=== PATIENT | male | born 1980 | race Caucasian/White ===

== ENCOUNTER 2017-05-11 18:41 | Emergency (ER) | payer SELFPAY ==
[~2017-05-11] VITALS: Ht 175.3 cm; Wt 83.9 kg
[~2017-05-11 18:41] MED LIST: HYDR-971 PO; IBUP800T19 PO
[2017-05-11 19:12] VITALS: BP 136/83
[2017-05-11] MEDS ORDERED: FLUT30CR5 TP (19:30)
[2017-05-11] MEDS ORDERED: PRED20TA PO (19:30)
[2017-05-11] MEDS ORDERED: DIPH25CA58 PO (19:30)
--- NOTE | 2017-05-11 19:30 | PHYS DOC ---
Past History Past Medical History: No Pertinent History Past Surgical History: No Surgical History Smoking: Cigarettes, Greater than 1 pack/day Alcohol Use: Occasionally Drug Use: None, Marijuana Adult General Chief Complaint Chief Complaint: SKIN PROBLEM HPI HPI He is a pleasant 36-year-old male otherwise healthy presents with a rash that began 3-4 days ago after being exposed to poison tammie . He's been in the field and during the weekend when he developed an itchy rash described as linear vesicles with intense itching. The itching is worse with direct pressure and scratching. Patient denies any fevers, chills, joint pain, history of sexual transmitted diseases, history of tick bites history of insect envenomations, he also denies any recent travel, use of antibiotics. Or increasing medications. Patient denies any fevers, headache, change in vision sore throat problems urinating other symptoms. Review of Systems Review of Systems Constitutional: Denies fever or chills [] Eyes: Denies change in visual acuity, redness, or eye pain [] HENT: Denies nasal congestion or sore throat [] Respiratory: Denies cough or shortness of breath [] Cardiovascular: No additional information not addressed in HPI [] GI: Denies abdominal pain, nausea, vomiting, bloody stools or diarrhea [] : Denies dysuria or hematuria [] Musculoskeletal: Denies back pain or joint pain [] Integument: Denies rash or skin lesions [] Neurologic: Denies headache, focal weakness or sensory changes [] Allergies Allergies Allergies Coded Allergies Type Severity Reaction Last Updated Verified tramadol Allergy Unknown 09/13/16 Yes Physical Exam Physical Exam Constitutional: Well developed, well nourished, no acute distress, non-toxic appearance, positive interaction, playful. Neck: Normal range of motion, no tenderness, supple, no stridor. Cardiovascular: Normal heart rate, normal rhythm, no murmurs, no rubs, no gallops. Thorax and Lungs: Normal breath sounds, no respiratory distress, no wheezing, no chest tenderness, no retractions, no accessory muscle use. Skin: Warm, dry, no erythema,a small vesicular rash on the external surfaces of the forearms and linear striations. Also has the same rash on his lower legs bilaterally. None of his circumferential that is causing a circuitry problem. Extremeties: ROM intact Musculoskeletal: Good ROM in all major joints Neurologic: Alert and oriented X 3 Psychologic: Affect normal, judgement normal, mood normal. EKG EKG [] Radiology/Procedures Radiology/Procedures [] Course & Med Decision Making Course & Med Decision Making Pertinent Labs and Imaging studies reviewed. (See chart for details) [] Dragon Disclaimer Dragon Disclaimer This chart was dictated in whole or in part using Voice Recognition software in a busy, high-work load, and often noisy Emergency Department environment. It may contain unintended and wholly unrecognized errors or omissions. Departure Departure: Impression: Primary Impression: Contact dermatitis Disposition: HOME, SELF-CARE Condition: STABLE Referrals: PCPVENKATA (PCP) Patient Instructions: Contact Dermatitis Additional Instructions: These return for any new or increasing symptoms or given a question concerns. Scripts Prednisone (PREDNISONE) 20 Mg Tablet 3 TAB PO DAILY for 5 Days, #15 TAB Prov: MARCELL JEFFRIES MD 05/11/17 Fluticasone Propionate (CUTIVATE) 30 Gm Cream..g. 1 DUONG TP BID, #60 GM 1 Refill Prov: MARCELL JEFFRIES MD 05/11/17 Diphenhydramine Hcl (BENADRYL) 25 Mg Capsule 50 MG PO QID for 7 Days, #56 CAP Prov: MARCELL JEFFRIES MD 05/11/17 MARCELL JEFFRIES MD May 11, 2017 19:30
== END 2017-05-11 19:49 | disposition home or self-care (01) ==
LOC: ER 18:41
DX: L25.9 Unspecified contact dermatitis, unspecified cause (principal); F17.210 Nicotine dependence, cigarettes, uncomplicated; F12.10 Cannabis abuse, uncomplicated; Z88.6 Allergy status to analgesic agent
CPT/HCPCS: 99283

== ENCOUNTER 2021-03-11 08:17 | Emergency (ER) | payer SELFPAY ==
[~2021-03-11] VITALS: Ht 177.8 cm; Wt 56.0 kg
[~2021-03-11 08:17] MED LIST changes: +DIPH25CA58 PO; +FLUT30CR5 TP; +HYDR-3165 PO; -HYDR-971 PO; +PRED20TA PO
[2021-03-11 08:25] VITALS: BP 131/87
[2021-03-11] MEDS: AMOXICILLIN/K CLAV 875/125MG TABLET. PO ONE (09:06)
[2021-03-11] MEDS ORDERED: AMOX1TAB61 PO (09:30)
--- NOTE | 2021-03-11 09:30 | PHYS DOC ---
Past History Past Medical History: Asthma Past Surgical History: Other Additional Past Surgical Histo: Jaw wired, testicular surgery as child. Smoking: Cigarettes, Greater than 1 pack/day Alcohol Use: Occasionally Drug Use: None, Marijuana General Adult EDM: Chief Complaint: HAND PROBLEM HPI: HPI: Patient is a [age] year old [sex] who presents with [] Review of Systems: Review of Systems: Constitutional: Denies fever or chills Eyes: Denies change in visual acuity HENT: Denies nasal congestion or sore throat Respiratory: Denies cough or shortness of breath Cardiovascular: Denies chest pain or edema GI: Denies abdominal pain, nausea, vomiting, bloody stools or diarrhea : Denies dysuria Musculoskeletal: Denies back pain or joint pain Integument: Denies rash Neurologic: Denies headache, focal weakness or sensory changes Endocrine: Denies polyuria or polydipsia Lymphatic: Denies swollen glands Psychiatric: Denies depression or anxiety Current Medications: Current Meds: Current Medications Medications (Trade) Dose Ordered Sig/Chin Start Time Stop Time Status Last Admin Dose Admin Amoxicillin/ Clavulanate Potassium (Augmentin 875/ 125mg) 1 tab 1X ONCE 03/11/21 08:45 03/11/21 09:00 DC 03/11/21 09:06 1 TAB Allergies: Allergies: Allergies Coded Allergies Type Severity Reaction Last Updated Verified tramadol Allergy Unknown 03/11/21 Yes Physical Exam: PE: Constitutional: Well developed, well nourished, no acute distress, non-toxic appearance. [] HENT: Normocephalic, atraumatic, bilateral external ears normal, oropharynx moist, no oral exudates, nose normal. [] Eyes: PERRLA, EOMI, conjunctiva normal, no discharge. [] Neck: Normal range of motion, no tenderness, supple, no stridor. [] Cardiovascular:Heart rate regular rhythm, no murmur [] Lungs & Thorax: Bilateral breath sounds clear to auscultation [] Abdomen: Bowel sounds normal, soft, no tenderness, no masses, no pulsatile masses. [] Skin: Warm, dry, no erythema, no rash. [] Back: No tenderness, no CVA tenderness. [] Extremities: No tenderness, no cyanosis, no clubbing, ROM intact, no edema. [] Neurologic: Alert and oriented X 3, normal motor function, normal sensory function, no focal deficits noted. [] Psychologic: Affect normal, judgement normal, mood normal. [] Current Patient Data: Vital Signs: Vital Signs Date Time Temp Pulse Resp B/P (MAP) Pulse Ox O2 Delivery O2 Flow Rate FiO2 03/11/21 08:25 96.8 79 16 131/87 (102) 98 EKG: EKG: [] Radiology/Procedures: Radiology/Procedures: [] Heart Score: Risk Factors: Risk Factors: DM, Current or recent (<one month) smoker, HTN, HLP, family history of CAD, obesity. Risk Scores: Score 0 - 3: 2.5% MACE over next 6 weeks - Discharge Home Score 4 - 6: 20.3% MACE over next 6 weeks - Admit for Clinical Observation Score 7 - 10: 72.7% MACE over next 6 weeks - Early Invasive Strategies Course & Med Decision Making: Course & Med Decision Making Pertinent Labs and Imaging studies reviewed. (See chart for details) [] Dragon Disclaimer: Dragon Disclaimer: This electronic medical record was generated, in whole or in part, using a voice recognition dictation system. Departure Departure: Impression: Primary Impression: Dog bite of right hand including fingers with infection Qualified Codes: S61.451A - Open bite of right hand, initial encounter; S61.259A - Open bite of unspecified finger without damage to nail, initial encounter; L08.9 - Local infection of the skin and subcutaneous tissue, unspecified; W54.0XXA - Bitten by dog, initial encounter Disposition: 01 HOME / SELF CARE / HOMELESS Condition: STABLE Referrals: PCP,NO (PCP) Patient Instructions: Animal Bite, [id number], Infectious Finger Tenosynovitis Additional Instructions: There are concerns your dog bite may turn into a worsening condition called Tenosynovitis. Instructions have been provided to you to look for signs of this condition. Please call and make an appointment to be re-evaluated by an orthopedic hand surgeon. Call Orthopedic clinic at to make an appointment in the next few days. [facility] [address] [place] [address] Return to ER for any worsening of condition or fever. Take over the counter Tylenol and/or Ibuprofen for pain or discomfort. Scripts Amoxicillin/Potassium Clav (AUGMENTIN 875-125 TABLET) 1 Each Tablet 1 TAB PO BID for Dog bite for 7 Days, #14 TAB 0 Refills Prov: ONI HORN DO 03/11/21 ONI HORN DO March 11, 2021 09:30
--- NOTE | 2021-03-11 10:17 | RAD ---
XR HAND_RIGHT 3 VIEWS History: Reason: pain, hx of dog bite / Spl. Instructions: / History: Technique: 3 views right hand Comparison: None. Findings: Normal alignment. No fracture. Soft tissues unremarkable. No radiopaque foreign body. Calcination adj acent to the third metacarpal phalangeal joint, likely related to prior trauma or degenerative change s. Chronic fifth metacarpal fracture. Impression: 1. No acute osseous abnormality. No radiopaque foreign body. Electronically signed by: Patric Wright DO (03/11/2021 10:14 AM) [id number]
== END 2021-03-11 09:35 | disposition home or self-care (01) ==
LOC: ER 08:17
DX: S61.259A Open bite of unspecified finger without damage to nail, initial encounter (principal); L08.9 Local infection of the skin and subcutaneous tissue, unspecified; J45.909 Unspecified asthma, uncomplicated; Z88.6 Allergy status to analgesic agent; F17.210 Nicotine dependence, cigarettes, uncomplicated; W54.0XXA Bitten by dog, initial encounter; Y93.89 Activity, other specified; Y92.89 Other specified places as the place of occurrence of the external cause; Y99.8 Other external cause status
CPT/HCPCS: 73130; 99283